=== PATIENT | male | born 1975 | race Hispanic/Latino ===

== ENCOUNTER 2017-11-15 14:10 | Emergency (ER) | payer SELFPAY ==
[~2017-11-15 14:10] MED LIST: Sodium Chloride 0.9% 100 ML BAG ONE; Sodium Chloride Irrig Solution 250 ML BOT ONE
[2017-11-15] MEDS ORDERED: Lidocaine 1% 20 ML MDV ONE (14:18)
[2017-11-15] MEDS ORDERED: Adacel (T-DAP) 0.5 ML VIAL ONE (14:18)
[2017-11-15] MEDS ORDERED: MORPHINE 10 MG/ML SYRINGE ONE (14:38)
[2017-11-15] MEDS ORDERED: Ondansetron HCl/PF 4 MG/2 ML Vial ONE (14:38)
[2017-11-15] MEDS ORDERED: CEFAZOLIN 1 GM VIAL ONE (14:41)
--- NOTE | 2017-11-15 15:38 | RAD ---
RIGHT HAND THREE VIEWS: Indication: Laceration injury. FINDINGS: There is a partial amputation of the second digit at the level of the DIP joint with a small bone fra gment projecting just distal to the middle phalanx. There is overlying bandaging. Bandaging overlies the thumb at the level of the proximal and distal phalanx. Scattered mild osteophytosis is present. There is a subtle contour deformity of the fifth metacarpal which may relate to sequellae from remote trauma. IMPRESSION: 1. Partial amputation injury at the second digit with overlying bandaging. 2. Bandaging overlying the thumb with soft tissue prominence. 3. Mild osteophytosis. POS: [facility]
== END 2017-11-15 15:18 | disposition short-term general hospital (02) ==
LOC: MADERS 14:10
DX: S68.120A Partial traumatic metacarpophalangeal amputation of right index finger, initial encounter (principal); E11.9 Type 2 diabetes mellitus without complications; Z79.84 Long term (current) use of oral hypoglycemic drugs; W31.2XXA Contact with powered woodworking and forming machines, initial encounter
CPT/HCPCS: 64450; 90471; 90715; 96365; 96375; J0690; J2001; J2270; J2405; J7050

== ENCOUNTER 2022-08-29 15:45 | Emergency (ER) | payer SELFPAY ==
[2022-08-29] MEDS ORDERED: Lidocaine 1%/Epinephrine 1:100K 10 ML VIAL ONE (16:22)
== END 2022-08-29 16:51 | disposition home or self-care (01) ==
LOC: MADERS 15:45
DX: L02.416 Cutaneous abscess of left lower limb (principal); L03.116 Cellulitis of left lower limb; E11.9 Type 2 diabetes mellitus without complications; Z79.84 Long term (current) use of oral hypoglycemic drugs; I10 Essential (primary) hypertension
CPT/HCPCS: 36416; 87070; 87077; 87186; 87205; 99283

== ENCOUNTER 2022-08-30 16:31 | Emergency (ER) | payer OTHER, SELFPAY ==
[2022-08-30] MEDS ORDERED: Bacitracin 1 PK ONE (17:39)
== END 2022-08-30 17:51 | disposition home or self-care (01) ==
LOC: MADERS 16:31
DX: Z48.00 Encounter for change or removal of nonsurgical wound dressing (principal); E11.9 Type 2 diabetes mellitus without complications; I10 Essential (primary) hypertension; Z79.84 Long term (current) use of oral hypoglycemic drugs
CPT/HCPCS: 99282